=== PATIENT | female | born 1985 | race Hispanic/Latino ===

== ENCOUNTER → 2025-03-12 | Day surgery (SDC) | payer BC ==
[2025-03-08 09:48] LABS: BASOPHILS % 0.5 % (0.0-1.0); EOSINOPHILS % 2.7 % (0.0-6.0); LYMPHOCYTES % 37.8 % (18.0-39.1); MONOCYTES % 4.8 % (4.4-11.3); NEUTROPHILS % 53.9 % (38.7-80.0); RED CELL DISTRIBUTION WIDTH 14.0 % (11.7-14.4)
[~2025-03-12] MED LIST: ACETAMINOPHEN 1000 MG/100 ML 100 ML IV ONE; BUPIVACAINE LIPOSOME/PF 266 MG/20 ML IJ ONE; DEXAMETHASONE SOD PHOS INJ 4 MG/ML SDV ONE; EPHEDRINE SULFATE INJ 50 MG/ML VIAL ONE; FENTANYL CITRATE/PF 100MCG/2 ML INJ ONE; KETOROLAC TROMETHAMINE 30 MG/ML VIAL ONE; LIDOCAINE HCL 2% LOCAL INJ 5 ML SDV VIAL INJ ONE; LMX 45 G1 TOP; MIDAZOLAM HCL 2 MG/2 ML VIAL ONE; ONDANSETRON HCL INJ 2MG/ML 2ML 2 MG/ML VIAL ONE; PROPOFOL IV EMULSION 10 MG/ML 20 ML VIAL ONE; ROCURONIUM BROMIDE 1 ML IV ONE; SUCCINYLCHOLINE CHLORIDE 20 MG/ML 10ML VIAL ONE; SUGAMMADEX SODIUM 200 MG/2 ML VIAL IV ONE; ULTRAM 50MG50 MG PO
[2025-03-12] MEDS: CEFAZOLIN SODIUM 2 GM ONE (09:54)
[2025-03-12] MEDS: LACTATED RINGER'S 1,000 ML ONE (09:55)
[2025-03-12] MEDS: ONDANSETRON HCL INJ 2MG/ML 2ML 2 MG/ML VIAL ONE (11:54)
[2025-03-12] MEDS: METOCLOPRAMIDE HCL 10 MG/2ML VIAL ONE (12:13)
[2025-03-12 12:25] VITALS: TEMP 97.5
[2025-03-12 12:55] VITALS: BP 120/78; RESP 16; O2SAT 96
== END | disposition home or self-care (01) ==
LOC: OR 08:45
PROVIDERS: ATTEND Orthopaedic Surgery
DX: S43.422A Sprain of left rotator cuff capsule, initial encounter (principal); M75.42 Impingement syndrome of left shoulder; M75.52 Bursitis of left shoulder; M75.02 Adhesive capsulitis of left shoulder; S43.432A Superior glenoid labrum lesion of left shoulder, initial encounter; M19.012 Primary osteoarthritis, left shoulder; S46.012A Strain of muscle(s) and tendon(s) of the rotator cuff of left shoulder, initial encounter; S40.012A Contusion of left shoulder, initial encounter; E66.09 Other obesity due to excess calories; R73.03 Prediabetes; K28.9 Gastrojejunal ulcer, unspecified as acute or chronic, without hemorrhage or perforation; X58.XXXA Exposure to other specified factors, initial encounter; Z88.6 Allergy status to analgesic agent; Z91.041 Radiographic dye allergy status; Z01.812 Encounter for preprocedural laboratory examination; Z68.34 Body mass index [BMI] 34.0-34.9, adult
CPT/HCPCS: 29807; 29824; 29826; 29827; 36415; 84702; 85025; C1713 ×2; J0131; J0330; J0666; J1100; J1885; J2003; J2250; J2405; J2704; J2765; J3010; J7121